=== PATIENT | female | born 1985 | race American Indian/Alaskan Native ===

== ENCOUNTER 2017-06-04 17:58 | Outpatient (CLI) | payer MEDICAID ==
[2017-06-04] MEDS ORDERED: LACTATED RINGERS 500 ML IV ONE (18:12)
[2017-06-04 19:19] VITALS: BP 117/77
[2017-06-04 20:40] LABS: Bilirubin,Urine NEG (Negative); Blood,Urine NEG (Negative); Ketones,Urine 80 mg/dL (Negative); Leukocyte Esterase,Urine NEG (Negative); Mucus,Urine FEW /HPF; Nitrite,Urine NEG (Negative); Protein,Urine <15 mg/dL mg/dL (Negative); Urobilinogen,Urine < 2.0 mg/dL (<2.0)
[2017-06-04] MEDS ORDERED: LACTATED RINGERS 1,000 ML ONE (22:20)
[2017-06-04] MEDS ORDERED: PROCARDIA*For Tocolysis only PO ONE (22:44)
--- NOTE | 2017-06-05 08:00 | Ultrasound Report ---
ULTRASOUND OB LIMITED History: well being, evaluate cervical length Technique: Transabdominal ultrasound with Doppler interrogation. Gestation: Single Heart Rate: 126 BPM Cervical length: 5.0 cm (Normal > 3 cm)
== END 2017-06-04 23:40 | disposition home or self-care (01) ==
LOC: TRG 17:58
PROVIDERS: ATTEND Obstetrics & Gynecology Gynecology
DX: O47.02 False labor before 37 completed weeks of gestation, second trimester (principal); Z87.891 Personal history of nicotine dependence; Z3A.25 25 weeks gestation of pregnancy
CPT/HCPCS: 36415; 76815; 81001; 82731; 96360; 96361; J7120